=== PATIENT | female | born 1955 | race African-American/Black ===

== ENCOUNTER 2016-07-17 14:16 | Inpatient (IN) | payer OTHER ==
[2016-07-17] VITALS (7 sets, daily range): BP systolic 156–171; BP diastolic 101–128
[~2016-07-17] VITALS: Ht 165.1 cm; Wt 56.7 kg
--- NOTE | 2016-07-17 14:44 | Emergency Room Report ---
History of Present Illness General Chief Complaint: Dyspnea/Respdistress Source: Patient Present Illness HPI Patient presented to shortness of breath. Patient had gradual onset of symptoms over the past 2-3 days.The patient reports having prior history of myocardial infarction. Patient states that she been feeling generalized weak for approximately one week. She denied any acute changes in her had difficulty breathing. Patient run out of her of blood pressure medications. Patient prior history of CVA as well as hypertension. She reportedly had been urinating. Patient noted have increased leg swelling over the past few days. Patient had not been vomiting. Patient currently takes aspirin daily. She does not know what her medications are. Allergies: Coded Allergies: No Known Allergies (Unverified , 07/17/16) Patient History Past Medical History: HTN, CHF, CVA/TIA Reviewed Nursing Documentation: PMH: Agreed, PSxH: Agreed Nursing Documentation-PMH Past Medical History: No History, Except For Hx Hypertension: Yes Hx Cerebrovascular Accident: Yes - 2016 Review of Systems All Other Systems: negative except mentioned in HPI Physical Exam Vital Signs Date Time Temp Pulse Resp B/P Pulse Ox O2 Delivery O2 Flow Rate FiO2 07/17/16 14:31 98.2 97 26 181/117 Sp02 EP Interpretation: reviewed, normal General Appearance: normal inspection, alert, GCS 15, moderate distress Head: atraumatic ENT: normal ENT inspection, hearing grossly normal, normal voice Neck: normal inspection, full range of motion, supple, no bony tend Respiratory: normal inspection, no retraction, no wheezing, rales Cardiovascular #1: regular rate, rhythm, JVD, edema Gastrointestinal: normal inspection, normal bowel sounds, non tender, soft, no guarding, no hernia Genitourinary: no CVA tenderness Musculoskeletal: normal inspection, back normal, normal range of motion Neurologic: normal inspection, alert, responsive, speech normal Psychiatric: normal inspection, judgement/insight normal, mood/affect normal Skin: normal inspection, normal color, no rash Medical Decision Making Diagnostic Impression: Primary Impression: Myocardial infarct Additional Impressions: Congestive cardiac failure Pleural effusion Uncontrolled hypertension ER Course Patient presented for shortness of breath. Differential included but was not limited to anemia, pneumonia, pneumothorax, myocardial infarction, pericardial effusion, congestive heart failure, acidosis. Because of complexity of patient' s case laboratory testing and imaging studies were ordered. The patient was given IV Lasix as well as nitroglycerin. She was noted to be initially markedly hypertensive.The patient was given aspirin. I EKG interpreted by me showed ST elevation versus motion artifact to the inferior leads consistent with recent myocardial infarction. Lab for studies are notable for initially elevated troponin. The patient was given IV metoprolol for hypertension. She started on a heparin drip.Dr. Donny Hernández was contacted for inpatient management and patient's EKG findings and the laboratory studies were discussed with him. A repeat EKG showed improvement in ST changes. The patient continued to be chest pain-free during her emergency course. Labs Test 07/17/16 15:00 07/17/16 16:55 White Blood Count 5.0 K/UL (4.8-10.8) Red Blood Count 5.50 M/UL (4.20-5.40) Hemoglobin 15.6 G/DL (12.0-16.0) Hematocrit 47.0 % (37.0-47.0) Mean Corpuscular Volume 93 FL (80-99) Mean Corpuscular Hemoglobin 28.3 PG (27.0-31.0) Mean Corpuscular Hemoglobin Concent 30.6 G/DL (32.0-36.0) Red Cell Distribution Width 14.9 % (11.6-14.8) Platelet Count 145 K/UL (150-450) Mean Platelet Volume 10.3 FL (6.5-10.1) Neutrophils (%) (Auto) 58.6 % (45.0-75.0) Lymphocytes (%) (Auto) 25.2 % (20.0-45.0) Monocytes (%) (Auto) 9.5 % (1.0-10.0) Eosinophils (%) (Auto) 5.0 % (0.0-3.0) Basophils (%) (Auto) 1.7 % (0.0-2.0) Prothrombin Time 11.9 SEC (9.30-11.50) Prothromb Time International Ratio 1.1 (0.9-1.1) Activated Partial Thromboplast Time 26 SEC (23-33) Sodium Level 144 mEQ/L (135-145) Potassium Level 4.0 mEQ/L (3.4-4.9) Chloride Level 102 mEQ/L (98-107) Carbon Dioxide Level 26 mEQ/L (20-30) Anion Gap 16 (5-15) Blood Urea Nitrogen 28 mg/dL (7-23) Creatinine 2.0 mg/dL (0.5-0.9) Estimat Glomerular Filtration Rate 25.6 mL/min (>60) Glucose Level 114 mg/dL (74-106) Calcium Level 8.2 mg/dL (8.6-10.2) Total Bilirubin 0.8 mg/dL (0.0-1.2) Aspartate Amino Transf (AST/SGOT) 22 U/L (5-40) Alanine Aminotransferase (ALT/SGPT) 12 U/L (3-33) Alkaline Phosphatase 97 U/L (35-104) Total Creatine Kinase 206 U/L (26-140) Creatine Kinase MB 5.1 ng/mL (< 3.8) Creatine Kinase MB Relative Index 2.4 Pro-B-Type Natriuretic Peptide 82590 pg/mL (0-125) Total Protein 6.9 g/dL (6.6-8.7) Albumin 3.2 g/dL (3.5-5.2) Globulin 3.7 g/dL Albumin/Globulin Ratio 0.8 (1.0-2.7) Lipase 18 U/L (< 60) Troponin I 0.74 ng/mL (<=0.30) EKG Diagnostic Results Rate: normal Rhythm: NSR ST Segments: other - st elevation, inferior leads with q waves Rhythm Strip Diag. Results EP Interpretation: yes Rhythm: NSR, no PVC's, no ectopy Chest X-Ray Diagnostic Results Chest X-Ray Ordered: Yes # of Views/Limited/Complete: 1 View Interpretation: other - cardiomegaly, right effusion, Indication: Shortness of Breath Impression: Other - congestive heart failure, right pleural effusion Date Electronically Signed: Jul 17, 2016 Time Electronically Signed: 16:08 Last Vital Signs Date Time Temp Pulse Resp B/P Pulse Ox O2 Delivery O2 Flow Rate FiO2 07/17/16 14:31 98.2 97 26 181/117 Status: improved Disposition: ADMITTED INPATIENT Condition: Serious Romero Andre Jul 17, 2016 14:44
[2016-07-17] MEDS ORDERED: Aspirin Baby 81mg ORAL ONE (14:45)
[2016-07-17 15:34] LABS: BASOPHILS % (AUTO) 1.7 % (0.0-2.0); LYMPHOCYTES % (AUTO) 25.2 % (20.0-45.0); MEAN CORPUSCULAR HEMOGLOBIN 28.3 PG (27.0-31.0); MEAN CORPUSCULAR HGB CONC 30.6 G/DL (32.0-36.0); MEAN CORPUSCULAR VOLUME 93 FL (80-99); MEAN PLATELET VOLUME 10.3 FL (6.5-10.1); MONOCYTES % (AUTO) 9.5 % (1.0-10.0); NEUTROPHILS % (AUTO) 58.6 % (45.0-75.0); PLATELET COUNT 145 K/UL (150-450); RED CELL DISTRIBUTION WIDTH 14.9 % (11.6-14.8)
[2016-07-17] MEDS: Nitroglycerin Subl 0.4mg tab (Bottle Of 25) SL PRN ×3 (15:36→16:11)
[2016-07-17 15:40] LABS: ALBUMIN/GLOBULIN RATIO 0.8 (1.0-2.7); CALCIUM 8.2 mg/dL (8.6-10.2); GLOMERULAR FILTRATION RATE 25.6 mL/min (>60); TOTAL PROTEIN 6.9 g/dL (6.6-8.7)
[2016-07-17 15:43] LABS: TROPONIN I 0.44 ng/mL (<=0.30)
[2016-07-17 15:51] LABS: CKMB 5.1 ng/mL (< 3.8)
[2016-07-17 16:00] LABS: INR 1.1 (0.9-1.1); PROTHROMBIN TIME 11.9 SEC (9.30-11.50)
[2016-07-17] MEDS ORDERED: Metoprolol 5mg/5ml Inj IVP ONE ×2 (16:00→17:30)
[2016-07-17] MEDS ORDERED: Heparin 5000 units/ml inj IV ONE (16:00)
[2016-07-17] MEDS ORDERED: Heparin 25,000u/D5W 500ml 500 ML IV SCH (16:00)
[2016-07-17] MEDS ORDERED: Tubing IV Cassette IV ONE (16:11)
[2016-07-17] MEDS ORDERED: ZOCOR10 MG ORAL (17:11)
[2016-07-17] MEDS ORDERED: [UNRECOGNIZED DRUG - REMARK] (17:11)
[2016-07-17] MEDS ORDERED: ASPIRIN81 MG ORAL (17:11)
[2016-07-17 17:23] LABS: TROPONIN I 0.74 ng/mL (<=0.30)
[2016-07-17] MEDS: Heparin 5000 units/ml inj SUBQ SCH (21:00)
[2016-07-17] MEDS: Metoprolol 25mg tab ORAL SCH (21:05)
[2016-07-17] MEDS: Atorvastatin 20mg tab ORAL SCH (21:05)
[2016-07-17] MEDS ORDERED: HydrALAZINE 50mg tab ORAL SCH (22:00)
[2016-07-18] VITALS (8 sets, daily range): BP systolic 144–164; BP diastolic 96–123
[2016-07-18 05:38] LABS: ABG ALLEN TEST POSITIVE; ABG BASE EXCESS -0.6; ABG PCO2 36.1 mmHg (35.0-45.0)
[2016-07-18 05:58] LABS: CHOLESTEROL/HDL RATIO 3.3 (3.3-4.4)
[2016-07-18] MEDS: Nitroglycerin 2% oint pkt TOPIC SCH ×3 (06:05→18:13)
[2016-07-18] MEDS: HydrALAZINE 50mg tab ORAL SCH ×3 (06:05→21:24)
[2016-07-18 06:09] LABS: TROPONIN I 0.54 ng/mL (<=0.30)
[2016-07-18] MEDS ORDERED: DuoNeb 0.5-3(2.5)mg/3ml neb HHN PRN (07:00)
[2016-07-18] MEDS ORDERED: Metoprolol 5mg/5ml Inj IVP SCH (07:25)
[2016-07-18] MEDS ORDERED: Aspirin Baby 81mg ORAL SCH (09:00)
[2016-07-18] MEDS: Heparin 5000 units/ml inj SUBQ SCH ×3 (09:00→21:22)
[2016-07-18] MEDS: Metoprolol 25mg tab ORAL SCH ×2 (09:12→21:23)
--- NOTE | 2016-07-18 20:45 | History and Physical Report ---
DATE OF ADMISSION: 07/17/2016 CHIEF COMPLAINT: Hypertensive urgency and congestive heart failure exacerbation. HISTORY OF PRESENT ILLNESS: The patient is a 60-year-old female. She has a history of ischemic cardiomyopathy and chronic bronchitis, who was admitted with complaints of shortness of breath. According to the patient, she had been short of breath for the last week. She had worsening orthopnea and PND. She denies any chest pain. No fevers. No chills. She has had a nonproductive cough. She presented to the emergency room there. She was noted to be markedly hypertensive. She had an elevated troponin. She had an x-ray evidence of congestive heart failure. The patient was given aspirin and nitroglycerin, started on heparin drip, and is now admitted for further evaluation and care. The patient has a nonproductive cough. Denies any fevers or chills. She has a history of a cardiac catheterization approximately a year ago where she had a stent placed. PAST MEDICAL HISTORY: As above. PAST SURGICAL HISTORY: None. CURRENT MEDICATIONS: Reconciled and reviewed. ALLERGIES: None. SOCIAL HISTORY: Negative for alcohol or drugs. The patient has a 26-omoc-mctn history of smoking. FAMILY HISTORY: None. REVIEW OF SYSTEMS: Negative except for shortness of breath, orthopnea, and PND. PHYSICAL EXAMINATION: VITAL SIGNS: Temperature 95.9 degrees, blood pressure 174/135, pulse of 86, and respirations 18. The patient is no distress. HEART: Regular rate and rhythm. LUNGS: Diminished breath sounds with scattered rhonchi and wheezes. ABDOMEN: Soft, nontender, and nondistended. EXTREMITIES: Without clubbing or cyanosis. There is 2+ pitting edema. LABORATORY DATA: White count was 5, hemoglobin 15, and platelet count of 145,000. Sodium 144, potassium was 4, BUN of 28, and creatinine was 2. Troponin was 0.44. Natriuretic peptide level was 10,000. ASSESSMENT: This is an unfortunate female with a history of ischemic cardiomyopathy, chronic bronchitis with complaints of hypertensive urgency, possible troponin leak, mild chronic obstructive pulmonary disease exacerbation, and chronic renal insufficiency. PLAN: 1. IV Lasix. 2. Continue antiplatelet therapy. 3. Discontinue heparin drip. 4. We will monitor renal function and volume status closely with diuretics. Cardiology consultation. 5. Pressure treatments as needed. 6. Check an echo. 7. Follow up chest x-ray. 8. Topical nitrates also have been added. Kobi Hines M.D. DR: LIYAH JOB#: [id number] CC:
[2016-07-18] MEDS: Atorvastatin 20mg tab ORAL SCH (21:22)
[2016-07-19] VITALS: BP 158/109
--- NOTE | 2016-07-19 03:30 | Consultation ---
DATE OF CONSULTATION: 07/17/2016 CARDIOLOGY CONSULTATION: CONSULTING PHYSICIAN: Hamlet Patino M.D. REQUESTING PHYSICIAN: Kobi Hines M.D. REASON FOR CONSULTATION: Elevated troponin levels with malignant range hypertension. HISTORY OF PRESENT ILLNESS: This 60-year-old female has a known history of ischemic cardiomyopathy. She was admitted to the hospital after complaining of several days of progressive shortness of breath with some cough and congestion. She has been compliant with medications, although she cannot name them. She has had malignant range blood pressure readings since presentation to the emergency room and elevated troponin level. PAST MEDICAL HISTORY: Noted above. ALLERGIES: None. MEDICATIONS: Reviewed and reconciled. SOCIAL HISTORY: Active smoker. She denies alcohol or substance abuse. FAMILY HISTORY: Noncontributory. REVIEW OF SYSTEMS: No fevers or chills. Some productive cough. No history of leg swelling. She has had a heart problem "with heart failure". She denies history of seizure or stroke. She is unaware of any kidney disease and has not noted any change in bowel habits. There is no history of diabetes or thyroid impairment noted. She is on anti-lipid drugs. PHYSICAL EXAMINATION: VITAL SIGNS: Afebrile, blood pressure 174/135, pulse rate 86, and respiratory rate 18. HEENT: Conjunctivae are pink. Oropharynx is clear. NECK: Supple. Jugular venous pressure is greater than 10. LUNGS: With bilateral breath sounds. Few rales and rhonchi. CARDIAC: Regular rhythm and rate. Diffuse point of maximum impulse. Normal S1 and S2 and a 1/6 systolic apical murmur. ABDOMEN: Soft. EXTREMITIES: With 2+ dependent edema bilaterally. LABORATORY DATA: Noted. DIAGNOSTIC DATA: EKG reviewed. IMPRESSION: 1. Ischemic and hypertensive cardiomyopathy. 2. Malignant hypertension. 3. Acute on chronic systolic congestive heart failure. 4. Chronic obstructive pulmonary disease exacerbation. 5. Acute bronchitis. 6. Chronic kidney disease. PLAN: 1. Cardiac monitoring. 2. Diuresis. 3. Anti-platelet therapy. 4. Echocardiogram. 5. Maximize antihypertensive and anti-failure regimen. 6. Further recommendations will follow once databases expanded. Hamlet Patino M.D. DR: Tres JOB#: [id number] CC:
[2016-07-19 04:00] VITALS: BP 129/92
--- NOTE | 2016-07-19 04:00 | Progress Note ---
DATE: 07/18/2016 CARDIOLOGY PROGRESS NOTE SUBJECTIVE: The patient continues to feel weak and short of breath. Blood pressure remains elevated. Echocardiogram was reviewed and notable for global hypokinesis, ejection fraction less than 15%, and possible apical thrombus. OBJECTIVE: VITAL SIGNS: Blood pressure 148/102, pulse 78, respirations 18, and afebrile. NECK: Supple. Jugular venous pressure greater than 10. LUNGS: With few rales. CARDIAC: Regular rhythm and rate. Normal S1. Increased splitting S2. A 1/6 systolic murmur at apex. ABDOMEN: Soft. EXTREMITIES: With dependent edema. LABORATORY DATA: Reviewed with troponin 0.44, 0.74, and 0.54. Cholesterol 139. IMPRESSION: 1. Acute on chronic systolic congestive heart failure. 2. Severe cardiomyopathy. 3. Possible left ventricular thrombus. 4. Chronic myocardial ischemia. 5. Malignant hypertension. PLAN: 1. Continue up titrating and maximizing anti-failure and antihypertensive regimen. 2. Start warfarin for cardioembolic prophylaxis in the setting of left ventricular thrombus. 3. Cautious diuresis. 4. Monitor renal parameters. 5. Consider transfer to tertiary care facility for cardiac catheterization and consideration for cardiac biventricular defibrillator. 6. Check urine toxicology screen. Hamlet Patino M.D. DR: ZHEN JOB#: [id number] CC:
[2016-07-19 06:00] LABS: ALBUMIN/GLOBULIN RATIO 0.6 (1.0-2.7); CALCIUM 8.2 mg/dL (8.6-10.2); MAGNESIUM 1.5 mg/dL (1.7-2.5); POTASSIUM 4.1 mEQ/L (3.4-4.9); TOTAL PROTEIN 6.5 g/dL (6.6-8.7)
[2016-07-19] MEDS ORDERED: HydrALAZINE 50mg tab ORAL SCH (06:00)
[2016-07-19 07:48] VITALS: BP 157/112
--- NOTE | 2016-07-19 07:58 | Cardiology Report ---
APPROVED REPORT EXAM: Two-dimensional and M-mode echocardiogram with Doppler and color Doppler. INDICATION Angina Pectoris M-Mode DIMENSIONS IVSd1.5 (0.7-1.1cm)Left Atrium (MM)4.4 (1.6-4.0cm) LVDd6.4 (3.5-5.6cm)Aortic Root3.1 (2.0-3.7cm) IVSs1.8 cm LVDs6.1 (2.5-4.0cm) PWs1.6 cm Four chamber dilated cardiomyopathy Global left ventricular akinesia except anteroseptal wall which is dyskinetic. Suspect left ventricular non-compaction in view of heavy trabeculation. Left ventricular ejection fraction estimated to be 10 %. Small posterior hemodynamically insignificant pericardial effusion. Moderate bi-atrial enlargement. Right ventricular enlargement. Focal aortic valve sclerosis with adequate cusp excursion. Thickened mitral valve leaflets with normal excursion. Mitral annulus and aortic root calcification. Normal pulmonic valve structure. Normal tricuspid valve structure. IVC dilated at 2.6 cm without physiologic collapse suggestive of increased RA pressure. A color flow and spectral Doppler study was performed and revealed: Trace aortic regurgitation. Moderate mitral regurgitation. Mitral inflow velocities indicates possible pseudo normalization pattern implying moderately elevated left atrial pressure (Grade II). Moderate to severe tricuspid regurgitation. Tricuspid systolic velocities suggests peak right ventricular systolic pressure of 85 mmHg, consistent with severe pulmonary hypertension. Trace pulmonic regurgitation present. Notified Dr. Leavitt by Dada 14:20 07-18-2016.
--- NOTE | 2016-07-19 08:07 | General Progress Note ---
Assessment/Plan Problem List: (1) Congestive cardiac failure ICD Codes: I50.9 - Heart failure, unspecified SNOMED: 55262536 (2) Uncontrolled hypertension ICD Codes: I10 - Essential (primary) hypertension SNOMED: 09980713 (3) Myocardial infarct ICD Codes: I21.3 - ST elevation (STEMI) myocardial infarction of unspecified site SNOMED: 53785730 Status: stable Assessment/Plan po diuretics pt wants to go home. willing to consider cath and defib. indications d/w pt. wean o2 bp rx monitor lytes and renal fxn Subjective ROS Limited/Unobtainable: No Constitutional: Reports: malaise, weakness HEENT: Reports: no symptoms Cardiovascular: Reports: no symptoms Respiratory: Reports: no symptoms Gastrointestinal/Abdominal: Reports: no symptoms Genitourinary: Reports: no symptoms Neurologic/Psychiatric: Reports: no symptoms Endocrine: Reports: no symptoms Hematologic/Lymphatic: Reports: no symptoms Allergies: Coded Allergies: No Known Allergies (Unverified , 07/17/16) All Systems: reviewed and negative except above Subjective much better today. less sob. off o2 Objective Last 24 Hour Vital Signs Date Time Temp Pulse Resp B/P Pulse Ox O2 Delivery O2 Flow Rate FiO2 07/19/16 07:48 97.7 77 20 157/112 96 Nasal Cannula 3.0 07/19/16 05:44 129/92 07/19/16 04:00 69 07/19/16 04:00 98.2 98 22 129/92 95 Nasal Cannula 3.0 07/19/16 00:00 67 07/19/16 00:00 98.2 98 22 158/109 95 Nasal Cannula 3.0 07/18/16 21:24 98.3 78 24 149/102 94 Nasal Cannula 3.0 07/18/16 21:24 149/102 07/18/16 21:23 78 149/102 07/18/16 20:12 80 18 100 Nasal Cannula 3.0 07/18/16 20:11 80 18 97 Nasal Cannula 3.0 07/18/16 20:04 94 Nasal Cannula 3.0 07/18/16 20:04 83 18 Nasal Cannula 3.0 07/18/16 20:03 Nasal Cannula 3.0 07/18/16 20:00 98.3 78 24 149/102 94 Nasal Cannula 3.0 07/18/16 20:00 83 07/18/16 18:13 144/96 07/18/16 16:15 2.0 07/18/16 16:15 79 07/18/16 16:00 97.9 75 20 144/96 99 Nasal Cannula 2.0 07/18/16 14:54 164/106 07/18/16 11:55 98.3 86 20 164/106 93 Nasal Cannula 2.0 07/18/16 11:49 86 164/106 07/18/16 11:48 164/106 07/18/16 11:29 85 07/18/16 11:29 2.0 07/18/16 09:12 162/112 07/18/16 09:12 87 162/112 Intake and Output 07/18/16 07/19/16 19:00 07:00 Intake Total 1120 ml Output Total 1700 ml 2500 ml Balance -580 ml -2500 ml Intake Oral 1120 ml Output Urine Total 1700 ml 2500 ml # Bowel Movements 1 5 Laboratory Tests 07/19/16 03:15: Sodium Level 142, Potassium Level 4.1, Chloride Level 101, Carbon Dioxide Level 26, Anion Gap 15, Blood Urea Nitrogen 36H, Creatinine 2.0H, Estimat Glomerular Filtration Rate 31.0, Glucose Level 98, Calcium Level 8.2L, Magnesium Level 1.5L , Total Bilirubin 0.9, Aspartate Amino Transf (AST/SGOT) 20, Alanine Aminotransferase (ALT/SGPT) 10, Alkaline Phosphatase 93, Pro-B-Type Natriuretic Peptide 93382V, Total Protein 6.5L, Albumin 2.6L, Globulin 3.9, Albumin/ Globulin Ratio 0.6L 07/19/16 05:30: Urine Opiates Screen Negative, Urine Barbiturates Screen Negative, Phencyclidine (PCP) Screen Negative, Urine Amphetamines Screen Negative, Urine Benzodiazepines Screen Negative, Urine Cocaine Screen Negative, Urine Marijuana (THC) Screen Negative Height (Feet): 5 Height (Inches): 5.00 Weight (Pounds): 125 General Appearance: WD/WN, alert Neck: supple Cardiovascular: regular rhythm Respiratory/Chest: lungs clear Abdomen: normal bowel sounds, non tender, soft, no organomegaly Edema: no edema noted Arm (L), no edema noted Arm (R), no edema noted Leg (L), no edema noted Leg (R), no edema noted Pedal (L), no edema noted Pedal (R), no edema noted Generalized Skin: normal pigmentation TULIO HERNANDEZ Jul 19, 2016 08:07
[2016-07-19 08:19] VITALS: BP 157/112
--- NOTE | 2016-07-19 08:39 | Cardiology Report ---
APPROVED REPORT EKG Measurement Heart [id number] PA [id number] Normal sinus rhythm Left ventricular hypertrophy with repolarization abnormality Cannot rule out inferior wall infarct, possibly old. Abnormal ECG
[2016-07-19] MEDS ORDERED: Furosemide 40mg tab ORAL SCH (09:00)
[2016-07-19] MEDS ORDERED: Carvedilol 25mg Tab ORAL SCH (09:00)
[2016-07-19] MEDS ORDERED: Imdur 30mg tab ORAL SCH (09:00)
[2016-07-19 09:21] LABS: INR 1.2 (0.9-1.1); PROTHROMBIN TIME 12.2 SEC (9.30-11.50)
--- NOTE | 2016-07-19 11:30 | Diagnostic Imaging Report ---
Indication: SOB Technique: One view of the chest Comparison: none Findings: The heart is enlarged. There is a large right pleural effusion. There is equivocal mild interstitial congestion. Impression: Cardiomegaly. Large right pleural effusion Equivocal mild interstitial congestion
--- NOTE | 2016-07-20 03:30 | Progress Note ---
DATE: 07/19/2016 CARDIOLOGY PROGRESS NOTE SUBJECTIVE: The patient continues to have elevated blood pressure readings. Her anti-failure and antihypertensive regimen continues to be advanced. She is also continuing with ongoing diuresis. I have spoken personally with [facility] Cardiology [facility] and explained the patient's clinical status, which includes cardiomyopathy with severe systolic dysfunction and ejection fraction of less than 20% in addition the possibility of an apical thrombus and continued tenuous hemodynamics with troponin elevation. The edi developer concurs with the need for transfer to higher level of care for cardiac catheterization and possibly defibrillator implant negative for flow-limiting disease. In the interim, continued medical therapy with the goal to optimize filling pressures is being pursued. As soon as a monitored bed is available, the patient will be accepted for transfer as outlined above. It appears that the patient has great length regarding the severity of her situation clinically and the risk of sudden cardiac without completing this workup as outlined above. Hamlet Patino M.D. DR: CARLA JOB#: [id number] CC:
--- NOTE | 2016-07-20 20:40 | Discharge Summary ---
Discharge Summary Hospital Course Date of Admission Jul 17, 2016 at 16:06 Date of Discharge Jul 19, 2016 at 10:13 Admitting Diagnosis chf, uncontrolled hypertension HPI Darlin Uriostegui is a 60 year old female who was admitted on Jul 17, 2016 at 16:06 for Congestive Heart Failure/Uncontrolled Hypertension Hospital Course [id number] Discharge Discharge Disposition Patient left AMA Discharge Diagnoses: Kanchan Madison NP Jul 20, 2016 20:40
--- NOTE | 2016-07-21 01:30 | Discharge Summary 2 SIG ---
DATE OF ADMISSION: 07/17/2016 DATE OF DISCHARGE: 07/19/2016 CONSULTANTS: Hamlet Patino M.D. BRIEF HOSPITAL COURSE: The patient is a 60-year-old female with history of ischemic cardiomyopathy and chronic bronchitis, who was admitted for complaints of shortness of breath. On evaluation at ED, the patient had elevated troponin and chest x-ray with evidence of congestive heart failure. She was given aspirin and nitroglycerin and was started on heparin drip and was admitted for further evaluation. Over the course of hospital stay, she was followed by Dr. Patino. She was given antiplatelet therapy. Echocardiogram done showed ejection fraction of 10%, pulmonary hypertension with global hypokinesis, and possible apical thrombus. The patient needs to be transferred to higher level of care for cardiac catheterization and possible defibrillator implant. However, full treatment was not carried out as the patient signed out against medical advice. FINAL DIAGNOSES: 1. Acute ST elevated myocardial infarction. 2. Uncontrolled hypertension. 3. Acute on chronic systolic congestive heart failure. 4. Severe cardiomyopathy. 5. Possible left ventricular thrombus. 6. Noncompliance as the patient signed out against medical advice. 7. Chronic obstructive pulmonary disease exacerbation. 8. Acute bronchitis. 9. Chronic kidney disease. Kobi Hines M.D. I have been assigned to dictate discharge summary on this account and I was not involved in the patient's management. Kanchan Madison N.P. DR: NEELA JOB#: [id number] CC: FLORIAN
== END 2016-07-19 10:13 | disposition left against medical advice (07) | DRG 190 ==
LOC: EMR 14:45 → EDBEDREQSVC 15:47 → 2W 16:06 → EDBEDREQ 17:00 → 2W 07-18 05:40
DX: I21.3 ST elevation (STEMI) myocardial infarction of unspecified site (principal); I50.23 Acute on chronic systolic (congestive) heart failure; I25.5 Ischemic cardiomyopathy; I16.0 Hypertensive urgency; Z91.19 Patient's noncompliance with other medical treatment and regimen; J44.0 Chronic obstructive pulmonary disease with (acute) lower respiratory infection; J20.9 Acute bronchitis, unspecified; J44.1 Chronic obstructive pulmonary disease with (acute) exacerbation; I13.0 Hypertensive heart and chronic kidney disease with heart failure and stage 1 through stage 4 chronic kidney disease, or unspecified chronic kidney disease; N18.9 Chronic kidney disease, unspecified; F17.200 Nicotine dependence, unspecified, uncomplicated
CPT/HCPCS: 36415; 36600; 71010; 80053; 80061; 80300; 82550; 82553; 82803; 83690; 83735; 83880; 84484; 85025; 85610; 85730; 93005; 93306; 94640; 94664; 94760; J7620